=== PATIENT | female | born 1935 | race Caucasian/White ===

== ENCOUNTER → 2017-06-12 15:17 | Outpatient (CLI) | payer MEDICARE, SELFPAY ==
[2017-03-25 14:00] VITALS: BP 164/82; BMI 31.4
[2017-06-12 17:45] LABS: Cholesterol 147 mg/dL (200); High Density Lipoprotein 37 mg/dL; Triglycerides 265 mg/dL; Very Low Density Lipoprotein 53 mg/dL (5-40)
== END ==
PROVIDERS: Family Provider Family Medicine; PCP Family Medicine; Visit Provider Family Medicine
DX: I10 Essential (primary) hypertension (principal)
CPT/HCPCS: 36415; 80061

== ENCOUNTER → 2017-12-11 15:46 | Outpatient (CLI) | payer MEDICARE, SELFPAY ==
[2017-12-11 17:42] LABS: Anion Gap 6 (5-15); BUN 39 mg/dL (7-18); BUN/Creat Ratio 35.5 RATIO (10-20); Calcium,Total 9.7 mg/dL (8.5-10.1); Chloride 105 mmol/L (98-107); EST Glomerular Filtration Rate 50 mL/min (>60); Est Glom Filt Rate - Afr Amer 61 mL/min (>60); Glucose 89 mg/dL (74-106); Potassium 4.3 mmol/L (3.5-5.1); Sodium Level 138 mmol/L (136-145)
== END ==
PROVIDERS: Family Provider Family Medicine; PCP Family Medicine; Visit Provider Family Medicine
DX: I10 Essential (primary) hypertension (principal)
CPT/HCPCS: 36415; 80048

== ENCOUNTER → 2018-03-04 11:58 | Outpatient (CLI) | payer MEDICARE, SELFPAY | PROVIDERS: Family Provider Family Medicine; PCP Family Medicine; Visit Provider Family Medicine | DX: N39.0 Urinary tract infection, site not specified (principal) | CPT/HCPCS: 87086; 87088; 87186 ==

== ENCOUNTER → 2018-03-26 14:38 | Outpatient (CLI) | payer MEDICARE, SELFPAY ==
[2017-10-15 11:17] VITALS: BMI 31.3
--- NOTE | 2018-03-26 14:42 | BI_ITS ---
MAMMOGRAPHY - UNILATERAL SCREENING: RIGHT BREAST REASON FOR EXAM: Female, 82 years old. Routine annual screening examination (unilateral). PERTINENT HISTORY: Personal history of breast cancer. Prior left mastectomy. Sister with breast cancer. Grandmother with breast cancer. TECHNIQUE: Digital unilateral breast brice (3D mammographic acquisition) in the CC and MLO projections. 2-D mediolateral oblique (MLO) and craniocaudad (CC) views of both breasts were obtained. CAD: Full Field Digital Mammography with Computer Added Detection was performed. COMPARISON: Comparison is made with prior examination of March 16, 2017 and March 11, 2016. FINDINGS: Breast Composition: There are scattered areas of fibroglandular density. There are no dominant masses or suspicious calcifications. No other significant abnormalities are identified. There has been no significant change since the prior study. BI/Rt Brst Unilat Brice Add-On IMPRESSION: Stable unilateral screening mammogram. Yearly follow-up mammogram recommended. (A) ASSESSMENT CATEGORY: BIRADS Category 1: Negative. A letter regarding these results will be sent to the patient by the facility within 30 days. Approximately 10% of breast cancers are not detected by mammography. A normal mammogram should not delay biopsy of a clinically suspicious abnormality. [id number] Electronically Signed: Brandon Mayberry MD at 9:56 EST Tel [phone], Service support ,
== END ==
PROVIDERS: Family Provider Family Medicine; PCP Family Medicine; Referring Provider Internal Medicine Hematology & Oncology; Visit Provider Internal Medicine Hematology & Oncology
DX: Z12.31 Encounter for screening mammogram for malignant neoplasm of breast (principal); Z85.3 Personal history of malignant neoplasm of breast; Z80.3 Family history of malignant neoplasm of breast
CPT/HCPCS: 77061; 77067; G0279

== ENCOUNTER → 2018-06-22 15:32 | Outpatient (CLI) | payer MEDICARE, SELFPAY ==
[2018-04-01 13:30] VITALS: BMI 31.1
[2018-06-22 17:42] LABS: AST(SGOT) 14 U/L (15-37); Alanine Aminotransfer ALT/SGPT 27 U/L (13-56); BUN 35 mg/dL (7-18); BUN/Creat Ratio 29.9 RATIO (10-20); Calcium,Total 9.4 mg/dL (8.5-10.1); Chloride 104 mmol/L (98-107); Cholesterol 169 mg/dL (200); Creatinine, Serum 1.17 mg/dL (0.55-1.02); EST Glomerular Filtration Rate 47 mL/min (>60); Est Glom Filt Rate - Afr Amer 57 mL/min (>60); Glucose 92 mg/dL (74-106); Potassium 4.2 mmol/L (3.5-5.1); Sodium Level 138 mmol/L (136-145); Triglycerides 331 mg/dL
[2018-06-22 17:43] LABS: Anion Gap 8 (5-15); High Density Lipoprotein 37 mg/dL; Very Low Density Lipoprotein 66 mg/dL (5-40)
== END ==
PROVIDERS: Family Provider Family Medicine; PCP Family Medicine; Visit Provider Family Medicine
DX: I10 Essential (primary) hypertension (principal); E78.00 Pure hypercholesterolemia, unspecified
CPT/HCPCS: 36415; 80048; 80061; 84450; 84460

== ENCOUNTER 2018-11-27 14:57 | Emergency (ER) | payer MEDICARE, SELFPAY ==
[2018-11-15 11:05] VITALS: BMI 30.1
[2018-11-27 14:58] VITALS: BP 127/84; PULSE 107; RESP 17; TEMP 37.1; O2SAT 95; BMI 30.7
[2018-11-27 15:07] VITALS: PULSE 88
--- NOTE | 2018-11-27 15:16 | EKG12_ITS ---
Test Reason : SYNCOPE Blood Pressure : / mmHG Vent. Rate : 089 BPM Atrial Rate : 089 BPM P-R Int : 200 ms QRS Dur : 092 ms QT Int : 362 ms P-R-T Axes : 049 -37 -07 degrees QTc Int : 440 ms Sinus rhythm with Premature atrial complexes Left axis deviation Abnormal ECG Confirmed by RONIT GOMEZ, ELSA ([id number]), film and video editor ELIJAH VEGA ([id number]) on 11/29/2018 1:56:31 PM Referred By: FERNANDO Confirmed By:ESTHER COTTRELL MD
--- NOTE | 2018-11-27 15:16 | RAD_ITS ---
STUDY: X-RAY CHEST REASON FOR EXAM: Female, 83 years old. Seizure today TECHNIQUE: PA and lateral views of the chest. COMPARISON: None. FINDINGS: EKG leads project over the chest. Reticular densities in the lung bases are likely fibrotic. No airspace consolidation. There is no demonstrated pleural abnormality. Normal size heart. Normal mediastinum and sara. Normal visualized pulmonary arteries. There is atherosclerotic calcification of the aortic arch with tortuosity. There are diffuse degenerative changes of the visualized thoracic spine. Normal visualized ribs, clavicles, and shoulders. There is no demonstrated abnormality of the visualized soft tissue structures of the upper abdomen. RAD/Chest PA and Lateral IMPRESSION: 1. No airspace consolidation or pleural effusion. 2. Mild bibasilar fibrotic densities. Electronically Signed: Giovanni Cuevas MD at 15:35 EDT , Service support ,
[2018-11-27 15:31] LABS: Absolute Lymphocyte Count 2.08 X10^3/uL (0.83-4.51); Absolute Neutrophil Count 6.1 X10^3/uL (2.0-7.7); Basophil# 0.04 X10^3/uL; Basophil% 0.4 % (0-1); Eosinophil# 0.22 X10^3/uL; Eosinophils% 2.4 % (0-5); Hematocrit 38.4 % (37-47); Hemoglobin 12.6 g/dL (12.0-15.0); Lymphocyte # 2.08 X10^3/ul (4.0); Lymphocyte % 22.8 % (19-41); Mean Corp Hgb Conc 32.8 g/dL (32-36); Mean Corpuscular Hgb 28.9 pg (27.0-32.0); Mean Corpuscular Volume 88.1 fL (81-99); Mean Platelet Vol. 10.3 fl (6.2-12.0); Monocyte# 0.69 X10^3/uL; Monocyte% 7.6 % (0-10); NRBC Flagged by Analyzer 0 % (0-5); Neutrophil # 6.05 X10^3/uL (2.7-7.7); Neutrophil % 66.5 % (47-70); Platelet Count 235 K/mm3 (150-450); RBC Distribution Width CV 13.8 % (11.6-14.6); RBC Distribution Width SD 44.2 fl (35.1-43.9); Red Blood Count 4.36 M/mm3 (4.2-5.4); White Blood Count 9.1 K/mm3 (4.4-11.0)
[2018-11-27 15:39] LABS: Anion Gap 8 (5-15); BUN 33 mg/dL (7-18); BUN/Creat Ratio 25.8 RATIO (10-20); Calcium,Total 9.5 mg/dL (8.5-10.1); Chloride 104 mmol/L (98-107); Creatinine, Serum 1.28 mg/dL (0.55-1.02); EST Glomerular Filtration Rate 42 mL/min (>60); Est Glom Filt Rate - Afr Amer 51 mL/min (>60); Estimated Creatinine Clearance 27.06 ml/min; Glucose 140 mg/dL (74-106); Potassium 3.9 mmol/L (3.5-5.1); Sodium Level 137 mmol/L (136-145)
[2018-11-27 16:10] VITALS: BP 126/57; PULSE 78; RESP 16; O2SAT 93
[2018-11-27 16:22] LABS: Bacteria 0 SEEN /hpf (None Seen); Mucous, Urine 0 SEEN /hpf (<or=2+); Red Blood Cells-Urine 0 SEEN /hpf (0-5); Squamous Epithelial Cells - UA 0 SEEN /hpf (5-10)
[2018-11-27 16:31] LABS: Color, Urine Yellow (Yellow); Glucose, Dipstick Normal (Normal); Ketone-Dipstick Negative (Negative); Leukocyte Esterase-Dipstick 25 /ul (Negative); Nitrite-Dipstick Negative (Negative); Occult Blood-Urine Negative /ul (Negative); Protein-Dipstick Negative (Negative); Urine Bilirubin Dipstick Negative (Negative); Urine Clarity Clear (Clear); Urine Urobilinogen Normal (Normal); Urine pH 6.5 (5.0 - 8.0)
[2018-11-27 16:39] LABS: White Blood Cells 0-5 SEEN /hpf (0-5)
--- NOTE | 2018-11-27 16:43 | ED.VIS.GEN ---
History of Present Illness Informant: Patient, Family Onset: Today Context: Sudden Onset Timing: Intermittent, Lasts - 5 seconds Quality: lightheaded Location: head Current Severity: Mild Maximum Severity: Mild Worsened by: nothing Relieved by: nothing Associated Symptoms: lightheadedness Narrative: 83-year-old female presents to the emergency department after near syncopal episode. Patient had just returned home from her 's service. She was with her daughter who is also present at the bedside currently. Patient endorsed that she was feeling tired and sat down and had an episode where she may have passed out. Her daughter is not sure. She states that she kind of closed her eyes for maybe 5 seconds. There is no tonic-clonic activity. Patient was not postictal or incontinent. Prior similar symptoms: No Recent Illness/Hospitalization: No <Benja Bell - Last Filed: 11/27/18 16:43> <Fer Hernandez - Last Filed: 11/27/18 17:25> Chief Complaint: Syncope Past Medical History Prior records reviewed: Yes Past Medical History: - - Hypertension and hyperlipidemia Lives: With Family Smoking Status: Never smoker Alcohol: None Drugs: None <Benja Bell - Last Filed: 11/27/18 16:43> <Fer Hernandez - Last Filed: 11/27/18 17:25> - Allergies and Home Meds Allergies/Adverse Reactions: Allergies shrimp Adverse Reaction (Severe, Verified 11/27/18 15:05) Nausea/Vom/Diarrhea Sulfa (Sulfonamide Antibiotics) Adverse Reaction (Severe, Verified 11/27/18 15:05) Nausea/Vom/Diarrhea etodolac [From Lodine] Adverse Reaction (Mild, Verified 11/27/18 15:05) Other Primary Care Physician: Quita Kern MD [Primary Care Provider] - Review of Systems All systems negative except as indicated General: Denies: Chills, Fever, Malaise Cardiovascular: Denies: Chest pain Respiratory: Denies: Dyspnea Neurological: Reports: - - Lightheadedness <Benja Bell - Last Filed: 11/27/18 16:43> Physical Exam Vital Signs/Narrative: Vital Signs Temp Pulse Resp BP Pulse Ox 11/27/18 16:10 78 16 126/57 H 93 11/27/18 15:07 88 11/27/18 14:58 98.8 F 107 H 17 127/84 H 95 Inital Vital Signs reviewed: Yes General: Well nourished, Well developed, No Acute Distress Head: Normocephalic, Atraumatic Eyes: Perrl, EOMI ENT: Moist mucous membranes Neck: Supple, Nontender Cardiovascular: Regular rate, Regular rhythm Respiratory: No distress, CTA bilaterally, Chest nontender Abdomen: Soft, Nontender, Nondistended, Normal bowel sounds, No masses Back: Nontender Extremities: Nontender, No edema Skin: Normal color, No rash Neurological: Alert, Oriented x3, Cranial nerves II-XII grossly intact, Normal Strength, Normal Sensation, Normal DTR, Normal Gait <Benja Bell - Last Filed: 11/27/18 16:43> Vital Signs/Narrative: Vital Signs Temp Pulse Resp BP Pulse Ox 11/27/18 17:19 73 14 121/78 H 97 11/27/18 16:10 78 16 126/57 H 93 11/27/18 15:07 88 11/27/18 14:58 98.8 F 107 H 17 127/84 H 95 <Fer Hernandez - Last Filed: 11/27/18 17:25> Diagnostic/Tx/Re-eval Chest X-Ray - ED: 2 View, Read by ED Physician, Read by Radiologist, No Acute Disease - Rhythm Strip Rhythm Strip: Sinus Rhythm Rate: 98 Ectopy: None - EKG Initial EKG Interpretation: Sinus Rhythm, No Acute Injury Pattern Prior: Unchanged - Medical Decision Making EKG was normal sinus rhythm with a rate of 89 bpm. NM interval is 200 ms. QTc 440 ms. No acute ischemic changes. Patient's laboratory work-up is unremarkable including CBC BMP and troponin. Urinalysis negative. Chest x-ray was unremarkable. Patient remains hemodynamically stable. Discussed with patient and her daughter at this time that she will be discharged home and we advised him to follow-up with primary care. They were agreeable with this plan. Return precautions were discussed. <Benja Bell - Last Filed: 11/27/18 16:43> - Medical Decision Making Patient was seen with me. I performed a [id number] evaluation with the patient. Patient presents with syncopal episode. Daughter states that the patient sat down and her head went back and her back was arched. Daughter told me that the patient's upper extremities were shaking above her. Daughter states this lasted approximately 5 seconds and then resolved. Daughter states the patient became awake and alert immediately. Daughter denies any lower extremity shaking. Vital signs are stable. Patient is afebrile. Patient is in no acute distress. Cranial nerves II through XII are intact. There are no focal motor or sensory deficits noted. Heart was regular rate and rhythm. Lungs are clear and equal bilaterally. Abdomen is soft and nontender. EKG showed normal sinus rhythm. There are no acute changes. CBC, basic metabolic profile, troponin, and urinalysis were all within normal limits. Chest x-ray does not show any acute cardiopulmonary process. Patient and her family were instructed to follow-up with her primary care physician in 5 to 7 days for further evaluation. Patient and her family understood and were agreeable with the plan. All questions were answered. <Fer Hernandez - Last Filed: 11/27/18 17:25> ED Disposition <Benja Bell - Last Filed: 11/27/18 16:43> <Fer Hernandez - Last Filed: 11/27/18 17:25> - Plan for ED Patient: Disposition: Home or Assisted Living Diagnosis: Syncope and collapse Instructions: SYNCOPE, Unk Cause Referrals: Quita Kern MD [Primary Care Provider] -
[2018-11-27 17:19] VITALS: BP 121/78; PULSE 73; RESP 14; O2SAT 97
== END 2018-11-27 17:20 | disposition home or self-care (01) ==
PROVIDERS: Emergency Provider Physician Assistant Medical; Family Provider Family Medicine; PCP Family Medicine
DX: R55 Syncope and collapse (principal); Z88.2 Allergy status to sulfonamides; I10 Essential (primary) hypertension; E78.5 Hyperlipidemia, unspecified
CPT/HCPCS: 71046; 80048; 81001; 84484; 85025; 93005; 99285; A4216

== ENCOUNTER → 2019-02-28 | Outpatient (CLI) | payer MEDICARE, SELFPAY ==
[2019-02-28 14:13] LABS: Anion Gap 6 (5-15); BUN 27 mg/dL (7-18); BUN/Creat Ratio 26.7 RATIO (10-20); Calcium,Total 9.4 mg/dL (8.5-10.1); Chloride 102 mmol/L (98-107); Creatinine, Serum 1.01 mg/dL (0.55-1.02); EST Glomerular Filtration Rate 55 mL/min (>60); Est Glom Filt Rate - Afr Amer 67 mL/min (>60); Glucose 92 mg/dL (74-106); Potassium 3.6 mmol/L (3.5-5.1); Sodium Level 137 mmol/L (136-145)
== END | disposition home or self-care (01) ==
LOC: MFPLAB 11:39
PROVIDERS: Family Provider Family Medicine; PCP Family Medicine; Visit Provider Family Medicine
DX: I10 Essential (primary) hypertension (principal)
CPT/HCPCS: 36415; 80048

== ENCOUNTER → 2019-03-28 10:58 | Outpatient (CLI) | payer MEDICARE, SELFPAY ==
--- NOTE | 2019-03-28 11:00 | BI_ITS ---
MAMMOGRAPHY - UNILATERAL SCREENING: RIGHT BREAST REASON FOR EXAM: Female, 83 years old. Routine annual screening examination (unilateral). PERTINENT HISTORY: History of left mastectomy in 1998. Family history of breast cancer in sister and grandmother. TECHNIQUE: TECHNIQUE: Digital examination. Mediolateral oblique (MLO) and craniocaudad (CC) views of both breasts were obtained. CAD: CAD was performed on this study. COMPARISON: March 26, 2018, March 24, 2017 FINDINGS: Breast Composition: The breasts are almost entirely fatty. Stable benign calcifications. There are no dominant masses or suspicious calcifications. No other significant abnormalities are identified. BI/SCREEN MAMM (CAD) W/HUAN UNI R IMPRESSION: Stable bilateral screening mammogram. ASSESSMENT CATEGORY: BIRADS Category 2: Benign. A letter regarding these results will be sent to the patient by the facility within 30 days. FOLLOW UP RECOMMENDATION: Yearly follow up mammogram recommended. (A) Approximately 10% of breast cancers are not detected by mammography. A normal mammogram should not delay biopsy of a clinically suspicious abnormality. [id number] Electronically Signed: Maurizio Alexander MD at 10:39 EST , Service support ,
== END ==
PROVIDERS: Family Provider Family Medicine; PCP Family Medicine; Referring Provider Internal Medicine Hematology & Oncology; Visit Provider Internal Medicine Hematology & Oncology
DX: Z12.31 Encounter for screening mammogram for malignant neoplasm of breast (principal); Z80.3 Family history of malignant neoplasm of breast; Z90.12 Acquired absence of left breast and nipple
CPT/HCPCS: 77063; 77067

== ENCOUNTER 2019-04-10 09:00 | Emergency (ER) | payer MEDICARE, SELFPAY ==
[2019-04-04 11:07] VITALS: BMI 30.1
[2019-04-10 09:00] VITALS: BP 144/72; PULSE 75; RESP 18; TEMP 36.6; O2SAT 98; BMI 29.2
--- NOTE | 2019-04-10 09:18 | RAD_ITS ---
STUDY: X-RAY - PELVIS AND RIGHT HIP REASON FOR EXAM: Female, 83 years old. Pain, decreased range of motion TECHNIQUE: 3 views of the pelvis and hip. COMPARISON: None. FINDINGS: There is a non-specific bowel gas pattern. Normal visualized soft tissue structures. There is diffuse demineralization of the osseous structures. There is narrowing with cortical sclerosis and osteophyte formation of the sacroiliac joint consistent with degenerative osteoarthritic changes. Normal bilateral superior and inferior pubic rami. Normal pubic symphysis. Normal bilateral ischial tuberosities. Normal visualized femoral head. Normal acetabulum. There is moderate articular joint space narrowing of the hip. RAD/HIP, UNI W/ Pelvis 2-3 Views IMPRESSION: Degenerative arthrosis, no demonstrated fracture or suspicious osseous lesion. However, hip and pelvic fractures in patients of this age can be subtle, if there is strong clinical suspicion of a fracture, recommend further evaluation with CT Electronically Signed: Hernando Canchola MD at 10:00 EST , Service support ,
[2019-04-10 10:53] LABS: Mucous, Urine 0 SEEN /hpf (<or=2+)
[2019-04-10 10:55] LABS: Color, Urine Yellow (Yellow); Glucose, Dipstick Normal (Normal); Ketone-Dipstick Negative (Negative); Leukocyte Esterase-Dipstick 100 /ul (Negative); Nitrite-Dipstick Negative (Negative); Occult Blood-Urine 25 /ul (Negative); Protein-Dipstick Negative (Negative); Urine Bilirubin Dipstick Negative (Negative); Urine Clarity Sl. Cloudy (Clear); Urine Urobilinogen Normal (Normal); Urine pH 6.5 (5.0 - 8.0)
[2019-04-10 11:03] LABS: Bacteria 1+ /hpf (None Seen); Red Blood Cells-Urine 0-5 SEEN /hpf (0-5); Squamous Epithelial Cells - UA 0-5 SEEN /hpf (5-10); White Blood Cells 5-10 SEEN /hpf (0-5)
[2019-04-10] MEDS: Acetaminophen 500 MG Tablet 1000 MG PO (11:13)
[2019-04-10 11:15] VITALS: BP 153/70; PULSE 87; RESP 16; O2SAT 97
--- NOTE | 2019-04-10 11:34 | CT_ITS ---
STUDY: CT ABDOMEN AND PELVIS WITHOUT CONTRAST REASON FOR EXAM: Female, 83 years old. Right hip possibly popped out when patient stated this morning. Patient able to walk but not stand straight. RADIATION DOSAGE (If Supplied By Facility): CTDIvol = ( 10.54 ) mGy, DLP = ( 539.90 ) mGycm TECHNIQUE: Transaxial images were obtained from the dome of the diaphragm to the symphysis pubis without oral contrast, and without intravenous contrast. Sagittal and coronal images were reconstructed. Individualized dose optimization techniques were used for this CT. COMPARISON: None. FINDINGS: There is a defect in the posterior right diaphragm with shallow herniation of fat. Minor subsegmental atelectasis in the posterior lung bases. The visualized lung bases are unremarkable. The heart size is within normal limits. There are calcifications in the aortic valve annulus, coronary arteries, and distal descending thoracic aorta. Normal liver. The portal vein diameter is 10.7 mm. Normal gallbladder and extrahepatic biliary system. The diameter of the common bile duct is 4 mm. There are multiple benign calcified granulomata of the spleen. Normal pancreas. Normal bilateral adrenal glands. Normal right kidney. There is mild cortical atrophy of the left kidney compared to the right, consistent with chronic medical renal disease. There is a 3 mm subcapsular probable calcification of the lateral midpole. Rounded exophytic 4.8 mm density projecting from the tip of the lower pole difficult to further characterize. No hydronephrosis. Normal visualized stomach. Normal small intestine. There are multiple colonic diverticula consistent with diverticulosis. The appendix is visualized and appears normal. There is diffuse atherosclerotic calcification of the abdominal aorta and proximal iliac arteries, without a demonstrated aneurysm. Normal inferior vena cava. Normal retroperitoneum. Normal urinary bladder. There is absence of the uterus consistent with a prior hysterectomy. There is a subcentimeter midline defect of the supraumbilical anterior abdominal wall, allowing for an elongated, mildly lobulated 4.5 x 2.7 x 2.45 cm herniation of fat. There are diffuse degenerative changes of the visualized spine. Mild degenerative changes at the inferior aspect of the bilateral sacroiliac joints. The bilateral hips are in normal alignment. There is no demonstrated acute fracture. CT/Abdomen/Pelvis without Cont IMPRESSION: 1. The bilateral hips are normal anatomic alignment. No demonstrated fracture. 2. Atherosclerotic vascular calcifications noted. No demonstrated aneurysm. 3. Mild atrophy of the left kidney. 4.8 mm density difficult to further characterize projects from the tip of the left lower pole. No hydronephrosis. 4. Small supraumbilical midline defect of the anterior abdominal wall, allowing for a 4.5 cm fat-containing hernia. 5. Colonic diverticulosis without acute diverticulitis. No sign of bowel obstruction. The appendix is normal. 6. Prior hysterectomy. 7. Numerous calcified granulomata of the spleen. Electronically Signed: Hernando Davis MD at 12:44 EST , Service support ,
--- NOTE | 2019-04-10 11:41 | ED.DCSUM_ITS ---
History of Present Illness Chief Complaint: Lower Extremity Injury Informant: Patient, Family Onset: Today Context: Sudden Onset Timing: Continuous Narrative: Patient is an 83-year-old female presenting with right hip and lower back pain. Patient states she was walking this morning when she suddenly felt a popping sensation in her hip area. She states since then she is had a lot of pain in her hip and buttocks area. It is worse when she walks. Is better when she leans forward. She has not taken anything for the pain. She denies any other complaints at this time. She has a history of kidney stones. She denies any urinary symptoms. Past Medical History - Allergies and Home Meds Allergies/Adverse Reactions: Allergies shrimp Adverse Reaction (Severe, Verified 04/10/19 09:03) Nausea/Vom/Diarrhea Sulfa (Sulfonamide Antibiotics) Adverse Reaction (Severe, Verified 04/10/19 09:03) Nausea/Vom/Diarrhea etodolac [From Lodine] Adverse Reaction (Mild, Verified 04/10/19 09:03) Other Primary Care Physician: Quita Kern MD [Primary Care Provider] - Past Medical History: - - SVT, hyperlipidemia, history of breast cancer Surgical History: arthroscopy, knee, hysterectomy, mastectomy Lives: With Family Smoking Status: Never smoker Review of Systems General: Denies: Chills, Fever, Sweats Eyes: Denies: Visual changes - bilaterally, Diplopia ENT: Denies: Rhinorrhea, Sore throat Cardiovascular: Denies: Chest pain, Palpitations Respiratory: Denies: Dyspnea, Cough, Dyspnea on exertion Gastrointestinal: Denies: Abdominal pain, Nausea, Vomiting, Diarrhea, Melena, Hematochezia Genitourinary: Denies: Dysuria, Hematuria, Frequency Musculoskeletal: Reports: Back pain - Lower back, Extremity Pain - Right hip Skin: Denies: Rash, Wounds Neurological: Denies: Headache, Weakness, Numbness Physical Exam Vital Signs/Narrative: Vital Signs Temp Pulse Resp BP Pulse Ox 04/10/19 11:15 87 16 153/70 H 97 04/10/19 09:00 97.9 F 75 18 144/72 H 98 Inital Vital Signs reviewed: Yes General: Well nourished, Well developed, No Acute Distress Head: Normocephalic, Atraumatic Eyes: Perrl, EOMI ENT: Moist mucous membranes, No rhinorrhea Neck: Supple, Nontender Cardiovascular: Regular rate, Regular rhythm, No murmurs Respiratory: No distress, CTA bilaterally, Chest nontender Abdomen: Soft, Nontender, Nondistended, Normal bowel sounds. Negative for: Mass Back: Nontender, Normal Inspection. Negative for: CVA tenderness, Spinal te nderness Extremities: No edema, - - Mild tenderness palpation of right lateral hip, no pain with range of motion. Legs are equal leg and there is no deformity obvious Skin: Normal color, No rash Neurological: Alert, Oriented x3, Cranial nerves II-XII grossly intact, Normal Strength, Normal Sensation Psychological: Normal affect, Normal Mood Diagnostic/Tx/Re-eval Clinical Impression(s) from Imaging Studies Hip/Pelvis X-Ray 04/10/19 09:18 IMPRESSION: Degenerative arthrosis, no demonstrated fracture or suspicious osseous lesion. However, hip and pelvic fractures in patients of this age can be subtle, if there is strong clinical suspicion of a fracture, recommend further evaluation with CT Electronically Signed: Hernando Canchola MD at 10:00 EST , Service support , Abdomen/Pelvis CT 04/10/19 11:34 IMPRESSION: 1. The bilateral hips are normal anatomic alignment. No demonstrated fracture. 2. Atherosclerotic vascular calcifications noted. No demonstrated aneurysm. 3. Mild atrophy of the left kidney. 4.8 mm density difficult to further characterize projects from the tip of the left lower pole. No hydronephrosis. 4. Small supraumbilical midline defect of the anterior abdominal wall, allowing for a 4.5 cm fat-containing hernia. 5. Colonic diverticulosis without acute diverticulitis. No sign of bowel obstruction. The appendix is normal. 6. Prior hysterectomy. 7. Numerous calcified granulomata of the spleen. Electronically Signed: Hernando Davis MD at 12:44 EST , Service support , Laboratory Data 04/10/19 04/10/19 10:50 11:55 Sodium 138 Potassium 4.3 Chloride 106 Carbon Dioxide 28.0 Anion Gap 4 L BUN 22 H Creatinine 0.97 Estim Creat Clear Calc 35.71 Est GFR (MDRD) Af Amer 70 Est GFR (MDRD) Non-Af 58 L BUN/Creatinine Ratio 22.7 H Glucose 108 H Calcium 9.4 Total Bilirubin 0.40 AST 12 L ALT 22 Alkaline Phosphatase 78 Total Protein 7.0 Albumin 3.5 Globulin 3.5 Albumin/Globulin Ratio 1.0 Urine Color Yellow Urine Clarity Sl. Cloudy Urine pH 6.5 Ur Specific [place] 1.010 Urine Protein Negative Urine Glucose (UA) Normal Urine Ketones Negative Urine Occult Blood 25 H Urine Nitrite Negative Urine Bilirubin Negative Urine Urobilinogen Normal Ur Leukocyte Esterase 100 H Urine RBC 0-5 SEEN Urine WBC 5-10 SEEN Ur Squamous Epith Cells 0-5 SEEN Urine Bacteria 1+ Urine Mucus 0 SEEN - Medical Decision Making Patient is evaluated for right hip pain. She appears nontoxic and in no acute distress. She is ambulatory. X-ray does not show any signs of dislocation or acute fracture. Urinalysis is obtained because of patient's advanced age and vague groin/hip pain. This does show a small amount of blood. Because of this a CT of the flank and BMP is obtained. This is grossly normal. Patient does not have an obvious aneurysm or ureterolithiasis to explain her symptoms. She does have some incidental findings that patient and family are informed of and need for nonemergent outpatient follow-up. Patient is given Tylenol for pain. She is able in the emergency room. I suspect she has a muscle strain that is causing her pain. I feel that she is stable for outpatient follow-up. Patient is counseled on signs and symptoms requiring return to the emergency room. Patient verbalizes agreement and understand this plan. Patient discharged home in stable and improved condition. ED Disposition - Plan for ED Patient: Disposition: Home or Assisted Living Diagnosis: Strain of right hip Instructions: Hip Strain Referrals: Quita Kern MD [Primary Care Provider] - Additional Instructions: Continue take Tylenol as needed for your pain. There is no obvious signs of broken bones or kidney stones causing your pain today. Your CT did show an incidental findings of some changes to your left kidney and your urine did have a small amount of blood in it. Please follow-up with your primary care doctor for further evaluations of this. This does not need to be done emergently. Return to the emergency room if you develop any worsening symptoms.
[2019-04-10 12:31] LABS: AST(SGOT) 12 U/L (15-37); Alanine Aminotransfer ALT/SGPT 22 U/L (13-56); Albumin, Serum 3.5 g/dL (3.2-5.0); Alkaline Phosphatase 78 U/L (45-117); Anion Gap 4 (5-15); BUN 22 mg/dL (7-18); BUN/Creat Ratio 22.7 RATIO (10-20); Calcium,Total 9.4 mg/dL (8.5-10.1); Chloride 106 mmol/L (98-107); Creatinine, Serum 0.97 mg/dL (0.55-1.02); EST Glomerular Filtration Rate 58 mL/min (>60); Est Glom Filt Rate - Afr Amer 70 mL/min (>60); Estimated Creatinine Clearance 35.71 ml/min; Globulin 3.5 g/dL (2.2-4.2); Glucose 108 mg/dL (74-106); Potassium 4.3 mmol/L (3.5-5.1); Sodium Level 138 mmol/L (136-145)
[2019-04-10 13:56] VITALS: BP 144/74; PULSE 74; RESP 18; O2SAT 97
== END 2019-04-10 13:57 | disposition home or self-care (01) ==
PROVIDERS: Emergency Provider Emergency Medicine; Family Provider Family Medicine; PCP Family Medicine
DX: S76.011A Strain of muscle, fascia and tendon of right hip, initial encounter (principal); X58.XXXA Exposure to other specified factors, initial encounter; Y93.9 Activity, unspecified; Y92.89 Other specified places as the place of occurrence of the external cause; Y99.9 Unspecified external cause status; K57.30 Diverticulosis of large intestine without perforation or abscess without bleeding; M16.11 Unilateral primary osteoarthritis, right hip; Z90.710 Acquired absence of both cervix and uterus; E78.5 Hyperlipidemia, unspecified; Z85.3 Personal history of malignant neoplasm of breast; Z87.442 Personal history of urinary calculi; Z79.899 Other long term (current) drug therapy
CPT/HCPCS: 73502; 74176; 80048; 80053; 81001; 87086; 87088; 99283

== ENCOUNTER → 2019-08-15 10:40 | Outpatient (CLI) | payer MEDICARE, SELFPAY ==
[2019-08-15 12:35] LABS: AST(SGOT) 13 U/L (15-37); Alanine Aminotransfer ALT/SGPT 21 U/L (13-56); Anion Gap 4 (5-15); BUN 32 mg/dL (7-18); BUN/Creat Ratio 30.8 RATIO (10-20); Calcium,Total 9.9 mg/dL (8.5-10.1); Chloride 102 mmol/L (98-107); Cholesterol 164 mg/dL (200); Creatinine, Serum 1.04 mg/dL (0.55-1.02); EST Glomerular Filtration Rate 54 mL/min (>60); Est Glom Filt Rate - Afr Amer 65 mL/min (>60); Glucose 88 mg/dL (74-106); High Density Lipoprotein 44 mg/dL; Potassium 4.1 mmol/L (3.5-5.1); Sodium Level 136 mmol/L (136-145); Triglycerides 158 mg/dL; Very Low Density Lipoprotein 32 mg/dL (5-40)
== END ==
PROVIDERS: PCP Family Medicine; Referring Provider Family Medicine; Visit Provider Family Medicine
DX: I10 Essential (primary) hypertension (principal); E78.00 Pure hypercholesterolemia, unspecified
CPT/HCPCS: 36415; 80048; 80061; 84450; 84460

== ENCOUNTER → 2020-02-14 11:39 | Outpatient (CLI) | payer MEDICARE, SELFPAY ==
[2019-12-02 15:06] VITALS: BMI 30.5
[2020-02-14 16:01] LABS: Anion Gap 7 (5-15); BUN 27 mg/dL (7-18); BUN/Creat Ratio 27.9 RATIO (10-20); Chloride 104 mmol/L (98-107); Creatinine, Serum 0.97 mg/dL (0.55-1.02); EST Glomerular Filtration Rate 58 mL/min (>60); Est Glom Filt Rate - Afr Amer 70 mL/min (>60); Glucose 72 mg/dL (74-106); Potassium 4.2 mmol/L (3.5-5.1); Sodium Level 138 mmol/L (136-145)
== END ==
PROVIDERS: PCP Family Medicine; Referring Provider Family Medicine; Visit Provider Family Medicine
DX: I10 Essential (primary) hypertension (principal)
CPT/HCPCS: 36415; 80048

== ENCOUNTER → 2020-04-02 10:35 | Outpatient (CLI) | payer MEDICARE, SELFPAY ==
[2019-12-02 15:06] VITALS: BMI 30.5
--- NOTE | 2020-04-02 10:45 | BI_ITS ---
MAMMOGRAPHY - UNILATERAL SCREENING: RIGHT BREAST REASON FOR EXAM: Female, 84 years old. Routine annual screening examination (unilateral). PERTINENT HISTORY: Personal history of breast cancer. Prior left mastectomy. Sister with breast cancer. Grandmother with breast cancer. TECHNIQUE: Digital unilateral breast huan (3D mammographic acquisition) in the CC and MLO projections. 2-D mediolateral oblique (MLO) and craniocaudad (CC) views of both breasts were obtained. CAD: Full Field Digital Mammography with Computer Added Detection was performed. COMPARISON: Comparison is made with prior study dated 03/28/2019 and 03/26/2018. FINDINGS: Breast Composition: There are scattered areas of fibroglandular density. There are no dominant masses or suspicious calcifications. No other significant abnormalities are identified. There has been no significant change since the prior study. BI/SCREEN MAMM (CAD) W/HUAN UNI R IMPRESSION: Stable unilateral screening mammogram. Yearly follow-up mammogram recommended. (A) ASSESSMENT CATEGORY: BIRADS Category 1: Negative. A letter regarding these results will be sent to the patient by the facility within 30 days. Approximately 10% of breast cancers are not detected by mammography. A normal mammogram should not delay biopsy of a clinically suspicious abnormality. [id number] Electronically Signed: Brandon Mayberry, at 11:22 EST , Service support ,
== END ==
PROVIDERS: PCP Family Medicine; Referring Provider Internal Medicine Medical Oncology; Visit Provider Internal Medicine Medical Oncology
DX: Z12.31 Encounter for screening mammogram for malignant neoplasm of breast (principal); Z80.3 Family history of malignant neoplasm of breast; Z85.3 Personal history of malignant neoplasm of breast; Z90.13 Acquired absence of bilateral breasts and nipples
CPT/HCPCS: 77063; 77067

== ENCOUNTER → 2020-04-23 15:02 | Outpatient (CLI) | payer MEDICARE, SELFPAY ==
[2020-04-09 11:01] VITALS: BMI 31.1
== END ==
PROVIDERS: PCP Family Medicine; Referring Provider Family Medicine; Visit Provider Family Medicine
DX: N39.0 Urinary tract infection, site not specified (principal)
CPT/HCPCS: 87086; 87088; 87186

== ENCOUNTER → 2020-08-14 11:18 | Outpatient (CLI) | payer MEDICARE, SELFPAY ==
[2020-04-09 11:01] VITALS: BMI 31.1
[2020-08-14 15:52] LABS: AST(SGOT) 15 U/L (15-37); Alanine Aminotransfer ALT/SGPT 28 U/L (13-56); Anion Gap 6 (5-15); BUN 25 mg/dL (7-18); BUN/Creat Ratio 23.8 RATIO (10-20); Chloride 102 mmol/L (98-107); Cholesterol 173 mg/dL (200); Creatinine, Serum 1.05 mg/dL (0.55-1.02); EST Glomerular Filtration Rate 53 mL/min (>60); Est Glom Filt Rate - Afr Amer 64 mL/min (>60); Glucose 64 mg/dL (74-106); High Density Lipoprotein 44 mg/dL; Potassium 4.3 mmol/L (3.5-5.1); Sodium Level 137 mmol/L (136-145); Triglycerides 264 mg/dL; Very Low Density Lipoprotein 53 mg/dL (5-40)
== END ==
PROVIDERS: PCP Family Medicine; Referring Provider Family Medicine; Visit Provider Family Medicine
DX: I10 Essential (primary) hypertension (principal); E78.00 Pure hypercholesterolemia, unspecified
CPT/HCPCS: 36415; 80048; 80061; 84450; 84460

== ENCOUNTER → 2020-12-10 12:47 | Outpatient (CLI) | payer MEDICARE, SELFPAY ==
[2020-11-28 14:42] VITALS: BMI 31.5
--- NOTE | 2020-12-10 12:53 | ECHOD_ITS ---
Reason For Study: ARRHYTHMIA Procedure This was a 2D Doppler, Color Flow transthoracic echocardiogram. The study was technically difficult. Exam performed in department. Left Ventricle Normal LV size. Left ventricular systolic function is normal. The estimated ejection fraction is 55 %. Diastolic function is indeterminate. No regional wall motion abnormalities noted. Right Ventricle Normal RV size. Normal systolic function. Atria Normal left atrium. Normal right atrium. No doppler evidence for ASD. Mitral Valve There is no mitral annular calcification. Mild focal mitral valve calcification of the anterior leaflet. Mild-Moderate (1-2+) mitral valve insufficiency. Tricuspid Valve Normal tricuspid valve. Mild to moderate (1-2+) tricuspid valve insufficiency. Right ventricular systolic pressure estimated to be 28 mmHg. Aortic Valve Trisinus/trileaflet aortic valve. Mild focal aortic valve calcification. Trivial aortic valve insufficiency. Pulmonic Valve The pulmonic valve is not well visualized. Great Vessels Normal sized aortic root. Calcified aortic root. Pericardium/Pleural No pericardial effusion. MMode/2D Measurements & Calculations LVIDd: 4.3 cm IVSd: 0.78 cm Ao root diam: 3.3 cm LVIDs: 3.4 cm LVPWd: 0.78 cm RVDd: 3.7 cm FS: 20.2 % LAV(MOD-bp): 54.6 ml LA A4 area: 19.1 cm2 LA dimension(2D): 3.0 cm LAV(MOD-bp) Indexed: 29.7 ml/m2 LAV(MOD-sp2): 55.3 ml LAV(MOD-sp4): 56.4 ml RA A4 area: 13.5 cm2 Time Measurements MV dec time: 0.21 sec Doppler Measurements & Calculations MV E max thanh: 65.9 cm/sec Lat Peak E' Thanh: 2.5 cm/sec Med Peak E' Thanh: 3.7 cm/sec MV A max thanh: 118.2 cm/sec E/E' lat: 26.2 E/E' med: 17.9 MV E/A: 0.56 Ao V2 max: 113.6 cm/sec AI max thanh: 475.2 cm/sec LV V1 max: 81.3 cm/sec Ao max P.2 mmHg AI max P.4 mmHg LV V1 max P.7 mmHg AI dec slope: 324.8 cm/sec2 AI P1/2t: 428.5 msec TR max thanh: 252.1 cm/sec TR max P.4 mmHg ECHO/Echo Complete Interpretation Summary The study was technically difficult. Left ventricular systolic function is normal. The estimated ejection fraction is 55 %. Mild focal mitral valve calcification of the anterior leaflet. Mild-Moderate (1-2+) mitral valve insufficiency. Mild to moderate (1-2+) tricuspid valve insufficiency. Mild focal aortic valve calcification. Trivial aortic valve insufficiency. Calcified aortic root. Right ventricular systolic pressure estimated to be 28 mmHg. Diastolic function is indeterminate. Ordering Physician: Rudy Feliciano Referring Physician: DAISY GAO Performed By: Caren Patel, RDCS, RVT
== END ==
PROVIDERS: PCP Family Medicine; Referring Provider Internal Medicine Cardiovascular Disease; Visit Provider Internal Medicine Cardiovascular Disease
DX: I47.1 Supraventricular tachycardia (principal); R55 Syncope and collapse
CPT/HCPCS: 93225; 93226; 93306

== ENCOUNTER → 2021-02-15 11:22 | Outpatient (CLI) | payer MEDICARE, SELFPAY ==
[2021-02-15 15:16] LABS: Anion Gap 7 (5-15); BUN 35 mg/dL (7-18); BUN/Creat Ratio 32.7 RATIO (10-20); Calcium,Total 9.9 mg/dL (8.5-10.1); Chloride 104 mmol/L (98-107); Creatinine, Serum 1.07 mg/dL (0.55-1.02); EST Glomerular Filtration Rate 52 mL/min (>60); Est Glom Filt Rate - Afr Amer 63 mL/min (>60); Glucose 76 mg/dL (74-106); Potassium 4.5 mmol/L (3.5-5.1); Sodium Level 138 mmol/L (136-145)
== END ==
PROVIDERS: PCP Family Medicine; Referring Provider Family Medicine; Visit Provider Family Medicine
DX: I10 Essential (primary) hypertension (principal)
CPT/HCPCS: 36415; 80048

== ENCOUNTER → 2021-04-03 10:17 | Outpatient (CLI) | payer MEDICARE, SELFPAY ==
--- NOTE | 2021-04-03 10:18 | BI_ITS ---
MAMMOGRAPHY - UNILATERAL SCREENING: RIGHT BREAST REASON FOR EXAM: Female, 85 years old. Routine annual screening examination (unilateral). PERTINENT HISTORY: Personal history of breast cancer. Prior left mastectomy. Sister with breast cancer. Grandmother with breast cancer. TECHNIQUE: Digital unilateral breast huan (3D mammographic acquisition) in the CC and MLO projections. 2-D mediolateral oblique (MLO) and craniocaudad (CC) views of both breasts were obtained. CAD: Full Field Digital Mammography with Computer Added Detection was performed. COMPARISON: Comparison is made with prior study dated 04/02/2020 and 03/28/2019. FINDINGS: Breast Composition: There are scattered areas of fibroglandular density. There are no dominant masses or suspicious calcifications. No other significant abnormalities are identified. There has been no significant change since the prior study. BI/SCREEN MAMM (CAD) W/HUAN UNI R IMPRESSION: Stable unilateral screening mammogram. Yearly follow-up mammogram recommended. (A) ASSESSMENT CATEGORY: BIRADS Category 1: Negative. A letter regarding these results will be sent to the patient by the facility within 30 days. Approximately 10% of breast cancers are not detected by mammography. A normal mammogram should not delay biopsy of a clinically suspicious abnormality. [id number] Electronically Signed: Brandon Mayberry MD at 10:49 EST , Service support ,
== END ==
PROVIDERS: PCP Family Medicine; Referring Provider Internal Medicine Hematology & Oncology; Visit Provider Internal Medicine Hematology & Oncology
DX: Z12.31 Encounter for screening mammogram for malignant neoplasm of breast (principal); Z85.3 Personal history of malignant neoplasm of breast; Z80.3 Family history of malignant neoplasm of breast; Z90.13 Acquired absence of bilateral breasts and nipples
CPT/HCPCS: 77063; 77067

== ENCOUNTER → 2021-08-21 | Outpatient (CLI) | payer MEDICARE, SELFPAY ==
[2021-08-21 15:33] LABS: AST(SGOT) 12 U/L (15-37); Alanine Aminotransfer ALT/SGPT 25 U/L (13-56); Anion Gap 6 (5-15); BUN 25 mg/dL (7-18); Calcium,Total 9.4 mg/dL (8.5-10.1); Chloride 103 mmol/L (98-107); Cholesterol 162 mg/dL (200); Creatinine, Serum 1.04 mg/dL (0.55-1.02); EST Glomerular Filtration Rate 53 mL/min (>60); Est Glom Filt Rate - Afr Amer 65 mL/min (>60); Glucose 88 mg/dL (74-106); High Density Lipoprotein 40 mg/dL; Sodium Level 139 mmol/L (136-145); Triglycerides 240 mg/dL; Very Low Density Lipoprotein 48 mg/dL (5-40)
== END | disposition home or self-care (01) ==
LOC: MFPLAB 11:44
PROVIDERS: PCP Family Medicine; Referring Provider Family Medicine; Visit Provider Family Medicine
DX: E78.00 Pure hypercholesterolemia, unspecified (principal); I10 Essential (primary) hypertension
CPT/HCPCS: 36415; 80048; 80061; 84450; 84460

== ENCOUNTER → 2021-11-06 | Outpatient (CLI) | payer MEDICARE, SELFPAY | END | disposition home or self-care (01) | PROVIDERS: PCP Family Medicine; Visit Provider Nurse Practitioner Family | DX: N39.0 Urinary tract infection, site not specified (principal) | CPT/HCPCS: 87077; 87086; 87088; 87186 ==

== ENCOUNTER → 2021-12-09 | Outpatient (CLI) | payer MEDICARE, SELFPAY | END | disposition home or self-care (01) | LOC: PSN 09:04 | PROVIDERS: PCP Family Medicine; Referring Provider Internal Medicine Cardiovascular Disease; Visit Provider Internal Medicine Cardiovascular Disease | DX: I47.1 Supraventricular tachycardia (principal) | CPT/HCPCS: 93225; 93226 ==

== ENCOUNTER → 2021-12-16 | Outpatient (CLI) | payer MEDICARE, SELFPAY | END | disposition home or self-care (01) | LOC: LABSPEC 14:15 | PROVIDERS: PCP Family Medicine; Visit Provider Obstetrics & Gynecology | DX: N39.0 Urinary tract infection, site not specified (principal) | CPT/HCPCS: 87077; 87086; 87088; 87186 ==

== ENCOUNTER → 2021-12-19 | Outpatient (CLI) | payer MEDICARE, SELFPAY ==
[2021-12-19 10:44] LABS: Mucous, Urine 0 SEEN /hpf (<or=2+)
[2021-12-19 12:36] LABS: Color, Urine Yellow (Yellow); Glucose, Dipstick Normal (Normal); Ketone-Dipstick Negative (Negative); Leukocyte Esterase-Dipstick 500 /ul (Negative); Nitrite-Dipstick Negative (Negative); Occult Blood-Urine 25 /ul (Negative); Protein-Dipstick 15 mg/dl (Negative); Urine Bilirubin Dipstick Negative (Negative); Urine Clarity Cloudy (Clear); Urine Urobilinogen Normal (Normal); Urine pH 6.5 (5.0 - 8.0)
[2021-12-19 12:57] LABS: White Blood Cells 50-100 SEEN /hpf (0-5)
[2021-12-19 12:59] LABS: Bacteria 1+ /hpf (None Seen); Red Blood Cells-Urine 0-5 SEEN /hpf (0-5); Squamous Epithelial Cells - UA 0-5 SEEN /hpf (5-10)
== END | disposition home or self-care (01) ==
LOC: MFPLAB 10:43 → LABSPEC 10:45
PROVIDERS: PCP Family Medicine; Referring Provider Family Medicine; Visit Provider Nurse Practitioner Family
DX: R39.15 Urgency of urination (principal)
CPT/HCPCS: 81001; 87077; 87086; 87088; 87186

== ENCOUNTER → 2022-04-04 | Outpatient (CLI) | payer MEDICARE, SELFPAY ==
--- NOTE | 2022-04-04 12:58 | BI_ITS ---
MAMMOGRAPHY - UNILATERAL SCREENING: RIGHT BREAST REASON FOR EXAM: Female, 86 years old. Routine annual screening examination (unilateral). PERTINENT HISTORY: Personal history of breast cancer. Prior left mastectomy. Sister with breast cancer. TECHNIQUE: Digital unilateral breast huan (3D mammographic acquisition) in the CC and MLO projections. 2-D mediolateral oblique (MLO) and craniocaudad (CC) views of both breasts were obtained. CAD: Full Field Digital Mammography with Computer Added Detection was performed. COMPARISON: Comparison is made with prior study dated 04/03/2021 and 04/02/2020. FINDINGS: Breast Composition: There are scattered areas of fibroglandular density. There are no dominant masses or suspicious calcifications. No other significant abnormalities are identified. There has been no significant change since the prior study. BI/SCREEN MAMM (CAD) W/HUAN UNI R IMPRESSION: Stable unilateral screening mammogram. Yearly follow-up mammogram recommended. (A) ASSESSMENT CATEGORY: BIRADS Category 1: Negative. A letter regarding these results will be sent to the patient by the facility within 30 days. Approximately 10% of breast cancers are not detected by mammography. A normal mammogram should not delay biopsy of a clinically suspicious abnormality. [id number] Electronically Signed: Brandon Mayberry MD at 13:48 EST ,
== END | disposition home or self-care (01) ==
LOC: OPBI 12:57
PROVIDERS: PCP Family Medicine; Referring Provider Internal Medicine Hematology & Oncology; Visit Provider Internal Medicine Hematology & Oncology
DX: Z12.31 Encounter for screening mammogram for malignant neoplasm of breast (principal); Z90.12 Acquired absence of left breast and nipple; Z80.3 Family history of malignant neoplasm of breast; Z85.3 Personal history of malignant neoplasm of breast
CPT/HCPCS: 77063; 77067

== ENCOUNTER → 2022-09-02 | Outpatient (CLI) | payer MEDICARE, SELFPAY ==
[2022-09-02 12:38] LABS: Microalbumin,Random Urine 40.7 mg/L (NO RANGE EST.); Microalbumin:Creatinine Ratio 67.8 mg/g CRE (<30 mg/g CRE)
[2022-09-02 13:46] LABS: AST(SGOT) 14 U/L (15-37); Alanine Aminotransfer ALT/SGPT 24 U/L (13-56); Anion Gap 6 (5-15); BUN 23 mg/dL (7-18); BUN/Creat Ratio 24.4 RATIO (10-20); Calcium,Total 9.9 mg/dL (8.5-10.1); Chloride 107 mmol/L (98-107); Cholesterol 154 mg/dL (200); Creatinine, Serum 0.94 mg/dL (0.55-1.02); EST Glomerular Filtration Rate 60 mL/min (>60); Est Glom Filt Rate - Afr Amer 72 mL/min (>60); Glucose 64 mg/dL (74-106); High Density Lipoprotein 45 mg/dL; Sodium Level 141 mmol/L (136-145); Thyroid Stim Hormone (TSH) 1.16 uIU/mL (0.358-3.74); Triglycerides 210 mg/dL; Very Low Density Lipoprotein 42 mg/dL (5-40)
== END | disposition home or self-care (01) ==
LOC: MFPLAB 11:15
PROVIDERS: PCP Family Medicine; Visit Provider Family Medicine
DX: I10 Essential (primary) hypertension (principal); I47.1 Supraventricular tachycardia; E78.00 Pure hypercholesterolemia, unspecified
CPT/HCPCS: 36415; 80048; 80061; 82043; 82570; 84443; 84450; 84460

== ENCOUNTER → 2022-12-17 | Outpatient (CLI) | payer MEDICARE, SELFPAY | END | disposition home or self-care (01) | LOC: LABSPEC 11:28 | PROVIDERS: PCP Family Medicine; Visit Provider Family Medicine | DX: N39.0 Urinary tract infection, site not specified (principal) | CPT/HCPCS: 87077; 87086; 87088; 87186 ==

== ENCOUNTER → 2023-04-09 | Outpatient (CLI) | payer MEDICARE, SELFPAY ==
--- NOTE | 2023-04-09 10:54 | BI_ITS ---
MAMMOGRAPHY - UNILATERAL SCREENING: RIGHT BREAST REASON FOR EXAM: Female, 87 years old. Routine annual screening examination (unilateral). PERTINENT HISTORY: Personal history of breast cancer. Prior left mastectomy. Sister with breast cancer. Grandmother with breast cancer. TECHNIQUE: Digital unilateral breast huan (3D mammographic acquisition) in the CC and MLO projections. 2-D mediolateral oblique (MLO) and craniocaudad (CC) views of both breasts were obtained. CAD: Full Field Digital Mammography with Computer Added Detection was performed. COMPARISON: Comparison is made with prior study dated April 04, 2022 and April 03, 2021. FINDINGS: Breast Composition: There are scattered areas of fibroglandular density. There are no dominant masses or suspicious calcifications. No other significant abnormalities are identified. There has been no significant change since the prior study. BI/SCREEN MAMM (CAD) W/HUAN UNI R IMPRESSION: Stable unilateral screening mammogram. Yearly follow-up mammogram recommended. (A) ASSESSMENT CATEGORY: BIRADS Category 1: Negative. A letter regarding these results will be sent to the patient by the facility within 30 days. Approximately 10% of breast cancers are not detected by mammography. A normal mammogram should not delay biopsy of a clinically suspicious abnormality. [id number] Electronically Signed: Brandon Mayberry MD at 12:10 EST ,
== END | disposition home or self-care (01) ==
LOC: OPBI 10:54
PROVIDERS: PCP Family Medicine; Referring Provider Internal Medicine Hematology & Oncology; Visit Provider Internal Medicine Hematology & Oncology
DX: Z12.31 Encounter for screening mammogram for malignant neoplasm of breast (principal); Z85.3 Personal history of malignant neoplasm of breast; Z80.3 Family history of malignant neoplasm of breast
CPT/HCPCS: 77063; 77067

== ENCOUNTER 2023-08-23 05:38 | Emergency (ER) | payer MEDICARE, SELFPAY ==
[2023-08-23 05:39] VITALS: BP 154/120; PULSE 124; RESP 17; TEMP 36; O2SAT 98; BMI 29.5
--- NOTE | 2023-08-23 05:53 | CT_ITS ---
STUDY: CT BRAIN WITHOUT CONTRAST REASON FOR EXAM: Female, 87 years old. Headache. RADIATION DOSAGE (If Supplied By Facility): CTDIvol = ( 44.99 ) mGy, DLP = ( 796.11 ) mGycm TECHNIQUE: Transaxial CT imaging of the brain was performed without administration of intravenous contrast material. Individualized dose optimization techniques were used for this CT. COMPARISON: No relevant prior comparison study available FINDINGS: PARENCHYMA: There is no acute bleed or infarct. There are chronic ischemic and atrophic changes. VENTRICLES: There is no hydrocephalus. MASTOID AIR CELLS AND PARANASAL SINUSES: The visualized paranasal sinuses are clear. The mastoid air cells are clear. BONES: There is no skull fracture. SOFT TISSUES: There is a 2.7 x 2.6 cm rounded soft tissue mass in the right softwood faller space which is not fully visualized on this exam. Further evaluation with a contrast-enhanced CT of the neck is recommended. CT/Brain/Head without Contrast IMPRESSION: No acute intracranial abnormality. Chronic ischemic and atrophic changes. 2.7 x 2.6 cm rounded soft tissue mass in the right softwood faller space which is not fully visualized on this exam. Further evaluation with a contrast-enhanced CT of the neck is recommended. Electronically Signed: Krishan Elizalde MD at 7:25 EDT ,
--- NOTE | 2023-08-23 05:53 | EKG12_ITS ---
Test Reason : DYSRHYTHMIA Blood Pressure : / mmHG Vent. Rate : 120 BPM Atrial Rate : 000 BPM P-R Int : 000 ms QRS Dur : 094 ms QT Int : 310 ms P-R-T Axes : 000 -30 014 degrees QTc Int : 438 ms Atrial fibrillation with rapid ventricular response Left axis deviation Nonspecific ST abnormality Abnormal ECG Confirmed by Ibrahima Honeycutt ([id number]), editor newspaper JOON VAIL ([id number]) on 08/24/2023 9:58:14 AM Referred By: Confirmed By:Ibrahima Honeycutt
--- NOTE | 2023-08-23 05:56 | EDS_ITS ---
HPI <Dr. Perry Flores DO - Last Filed: 08/29/23 15:35> History of Present Illness Chief Complaint: Headache Informant: patient Narrative Narrative: By EMS from home nontraumatic pain right posterior head wrapping around to her neck lower jaw region. Denies fevers or recent illness. Mild symptoms starting for better worsening prior to arrival she took a washcloths to it now currently subsided on 2-3. Chickenpox when she was younger she got the shingles vaccine no shingles in the past. No visual changes. EMS EKG reviewed artifactual however questionable A-fib. She has no history of this, states SVT history as noted in her records. Remote breast cancer history years ago. No current treatment. [facility] <Dr. Perry Flores DO - Last Filed: 08/29/23 15:35> [facility] Medical History History of left breast cancer History of recent fall Hyperlipidemia Macular degeneration Malignant neoplasm of left female breast Non-rheumatic mitral regurgitation Non-rheumatic tricuspid valve insufficiency Paroxysmal SVT (supraventricular tachycardia) Syncope and collapse Home Medications atorvastatin 10 mg tablet 10 mg PO QHS 12/02/13 [History Last Taken Unknown] rmxnhovm-ukf-fhtfu acid 0.4 mg-lycopene 300 mcg-lutein 250 mcg tablet 1 ea PO DAILY 12/02/13 [History Last Taken Unknown] oxybutynin chloride 10 mg tablet,extended release 24 hr 10 mg PO DAILY 12/02/13 [History Last Taken Unknown] cholecalciferol (vitamin D3) 25 mcg (1,000 unit) tablet 1,000 unit PO DAILY 01/02/15 [History Last Taken Unknown] lisinopril 20 mg-hydrochlorothiazide 12.5 mg tablet 1 tab PO BID 12/02/19 [History Last Taken Unknown] potassium chloride 10 mEq tablet,extended release 20 meq PO BID 12/02/19 [History Last Taken Unknown] vit C 250 mg-vit E 90 mg-zinc 40 mg-copper 1 ln-neirvh-kaevyc capsule 1 cap PO BID 12/02/19 [History Last Taken Unknown] colloidal oatmeal 2 % topical cream (Gold Jimenes Ultimate Eczema Relief) 1 applic topical DAILY PRN dry skin 11/28/20 [History Last Taken Unknown] hydrocortisone 1 % topical cream (Cortizone-10) 1 applic topical BID PRN skin irritation 11/28/20 [History Last Taken Unknown] povidone 1.25 % eye drops (Soothe Hydration) 1 drp ophthalmic (eye) BID PRN 11/28/20 [History Last Taken Unknown] metoprolol tartrate 50 mg tablet 50 mg PO BID #180 tabs 10/08/22 [Rx Last Taken Unknown] apixaban 5 mg tablet (Eliquis) 5 mg PO BID #60 tabs 08/23/23 [Rx Last Taken Unknown] diltiazem HCl 120 mg capsule,extended release 24 hr (Cardizem CD) 120 mg PO DAILY #30 caps 08/23/23 [Rx Last Taken Unknown] Allergy/AdvReac Type Severity Reaction Status Date / Time shrimp AdvReac Severe Nausea/Vom/ Verified 08/23/23 05:39 Diarrhea Sulfa (Sulfonamide AdvReac Severe Nausea/Vom/ Verified 08/23/23 05:39 Antibiotics) Diarrhea etodolac [From Lodine] AdvReac Mild Other Verified 08/23/23 05:39 Family History Mother Myocardial infarction, Onset Age: 68 Sister CAD (coronary artery disease) Surgical History History of left knee replacement History of mastectomy History of right knee joint replacement History of total hysterectomy Social History Smoking Status: Never smoker second hand exposure: No alcohol intake: never substance use type: does not use caffeine: No lakia/roman catholic: None seatbelt use: always ROS <Dr. Perry Flores DO - Last Filed: 08/29/23 15:35> ROS ED Constitutional Constitutional ED: Denies chills, fever(s) or sweats Eyes Eyes: Denies change in vision ENT ENT ED: Denies dysphagia or sore throat Cardiovascular Cardiovascular: Denies chest pain, leg edema, palpitations or racing heartbeat Respiratory/Chest Respiratory/Chest: Denies cough, dyspnea or dyspnea on exertion Gastrointestinal Gastrointestinal: Denies abdominal pain, diarrhea, nausea or vomiting Genitourinary Genitourinary ED: Denies dysuria, hematuria or urinary frequency Musculoskeletal Musculoskeletal: Denies back pain, extremity pain or neck pain Integumentary Denies rash or wounds Neurologic Neurologic: Reports headache(s); Denies paresthesias or weakness EXAM <Dr. Perry Flores DO - Last Filed: 08/29/23 15:35> Physical Exam Const Vital Signs: 08/23/23 05:39 08/23/23 07:39 08/23/23 09:00 Temperature 96.8 F L Temperature Source Temporal Pulse Rate 124 H 105 H 63 Respiratory Rate 17 16 16 Blood Pressure 154/120 H 158/93 H 159/101 H Blood Pressure Mean 131 114 120 Pulse Ox 98 98 98 Oxygen Delivery Method Room Air Room Air Room Air 08/23/23 10:45 Temperature Temperature Source Pulse Rate 108 H Respiratory Rate 18 Blood Pressure 150/95 H Blood Pressure Mean 113 Pulse Ox 98 Oxygen Delivery Method Room Air Positive well nourished and well developed General Appearance ED: well developed and NAD HEENT Reports moist mucous membranes HEENT Narrative: Tenderness along the skin at the right occiput right lateral neck. No current lesions or rash. normocephalic and atraumatic Eyes PERRL, EOMs intact bilaterally and conjunctivae normal General Eye ED: Yes normal appearance of both eyes Neck no lymphadenopathy and supple General: Negative for tenderness Chest Wall Chest: Negative for tenderness Resp normal respiratory effort and normal air movement Effort and Inspection: symmetric chest movement; Negative for respiratory distress Cardio no murmurs Rate: tachycardic Rhythm: abnormal rhythm Peripheral Pulses: pulses 2+ throughout GI normal to inspection, nondistended, normoactive bowel sounds and non-tender Palpation: Negative for guarding or rebound tenderness present Back/Spine no CVA tenderness and no thoracic nor lumbar tenderness Extremity normal to inspection General Extremety ED: Negative for edema or tenderness General Extremity: Negative for edema Neuro oriented x3, CN's II-XII intact bilaterally and no sensory deficits noted Sensorium / Orientation: awake and alert Skin no rashes or lesions noted and no wounds <Dr. Thanh Seanz MD - Last Filed: 08/23/23 11:22> Physical Exam Const Vital Signs: 08/23/23 05:39 08/23/23 07:39 08/23/23 09:00 Temperature 96.8 F L Temperature Source Temporal Pulse Rate 124 H 105 H 63 Respiratory Rate 17 16 16 Blood Pressure 154/120 H 158/93 H 159/101 H Blood Pressure Mean 131 114 120 Pulse Ox 98 98 98 Oxygen Delivery Method Room Air Room Air Room Air 08/23/23 10:45 Temperature Temperature Source Pulse Rate 108 H Respiratory Rate 18 Blood Pressure 150/95 H Blood Pressure Mean 113 Pulse Ox 98 Oxygen Delivery Method Room Air [facility] <Dr. Perry Flores, DO - Last Filed: 08/29/23 15:35> [facility] MDM Narrative Medical decision making narrative: Interventions / MDM: Differential diagnosis: A-fib with RVR, shingles Diagnosis considered but do not suspect: Intracranial hemorrhage however CT negative. My EKG interpretation: A-fib RVR 122, no ST or T wave changes. Imaging independently reviewed and interpreted by myself: 1 view chest x-ray: No acute process. CT brain: No intracranial process. There is fullness soft tissue structure right masseter region per radiology. External documents reviewed: N/A Test considered but not ordered:N/A ED course: Patient nontraumatic pain occiput along the skin line there is no current rash. Head CT ordered. Heart rate sound irregular and tachycardic. EKG confirms A-fib with RVR. Labs were drawn, Lopressor ordered. Denies any stroke or heart failure history. No diabetes history. History of hypertension per patient. 0705: Heart rate low 100s. Blood pressure stable. Additional Lopressor to be given. Labs are pending. Right-sided Slowly subsiding. 0750: CT brain report per radiology notes a soft tissue mass right mastectomy region partially seen on the CT brain. Evaluation patient she denies any discomfort swallowing. She does not smoke or chew tobacco. On exam there is fullness up in the right soft palate region. Is nontender. CT soft tissue neck ordered for further evaluation. Patient signed out to morning physician Dr. Saenz. Re-evaluation: stable Disposition discussed with patient/family/significant other: Patient Case discussed with consulting clinician: N/A This note was generated with [employer] dictation software. It may contain incorrect words, spelling, and punctuation that were not noted in checking the note before signing. Lab Data Labs: Laboratory Results - last 24 hr 08/23/23 06:07 WBC 9.1 RBC 4.49 Hgb 12.4 Hct 39.1 MCV 87.1 MCH 27.6 MCHC 31.7 L RDW Std Deviation 47.8 H RDW Coeff of Scott 15.1 H Plt Count 235 MPV 11.2 Immature Gran % (Auto) 0.300 Neut % (Auto) 69.1 Lymph % (Auto) 20.5 Screven % (Auto) 6.2 Eos % (Auto) 3.1 Baso % (Auto) 0.8 Absolute Neuts (auto) 6.3 Absolute Lymphs (auto) 1.87 Nucleated RBC % 0 Sodium 137 Potassium 3.7 Chloride 104 Carbon Dioxide 26.0 Anion Gap 7 BUN 30 H Creatinine 1.08 H Estim Creat Clear Calc 35.08 Est GFR (MDRD) Af Amer 61 Est GFR (MDRD) Non-Af 51 L BUN/Creatinine Ratio 27.8 H Glucose 131 H Calcium 9.8 TSH 1.85 Radiography Diagnostic Testing: Clinical Impression(s) from Imaging Studies Brain CT 08/23/23 05:53 IMPRESSION: No acute intracranial abnormality. Chronic ischemic and atrophic changes. 2.7 x 2.6 cm rounded soft tissue mass in the right shift foreman space which is not fully visualized on this exam. Further evaluation with a contrast-enhanced CT of the neck is recommended. Electronically Signed: Krishan Elizalde MD at 7:25 EDT , Chest X-Ray 08/23/23 06:23 IMPRESSION: Cardiomegaly. Left basilar atelectasis. No pulmonary infiltrates or pleural effusions. Electronically Signed: Krishan Elizalde MD at 7:27 EDT , Soft Tissue Neck CT 08/23/23 07:50 IMPRESSION: 1. 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 This is not a right shift foreman space mass as was reported on CT head scan. 2. No CT evidence of lymphadenopathy in the suprahyoid neck and infrahyoid neck. Electronically Signed: Shiva Coy MD at 10:11 EDT , <Dr. Thanh Saenz MD - Last Filed: 08/23/23 11:22> [facility] Lab Data Labs: Laboratory Results - last 24 hr 08/23/23 06:07 WBC 9.1 RBC 4.49 Hgb 12.4 Hct 39.1 MCV 87.1 MCH 27.6 MCHC 31.7 L RDW Std Deviation 47.8 H RDW Coeff of Scott 15.1 H Plt Count 235 MPV 11.2 Immature Gran % (Auto) 0.300 Neut % (Auto) 69.1 Lymph % (Auto) 20.5 Screven % (Auto) 6.2 Eos % (Auto) 3.1 Baso % (Auto) 0.8 Absolute Neuts (auto) 6.3 Absolute Lymphs (auto) 1.87 Nucleated RBC % 0 Sodium 137 Potassium 3.7 Chloride 104 Carbon Dioxide 26.0 Anion Gap 7 BUN 30 H Creatinine 1.08 H Estim Creat Clear Calc 35.08 Est GFR (MDRD) Af Amer 61 Est GFR (MDRD) Non-Af 51 L BUN/Creatinine Ratio 27.8 H Glucose 131 H Calcium 9.8 TSH 1.85 Radiography Diagnostic Testing: Clinical Impression(s) from Imaging Studies Brain CT 08/23/23 05:53 IMPRESSION: No acute intracranial abnormality. Chronic ischemic and atrophic changes. 2.7 x 2.6 cm rounded soft tissue mass in the right shift foreman space which is not fully visualized on this exam. Further evaluation with a contrast-enhanced CT of the neck is recommended. Electronically Signed: Krishan Elizalde MD at 7:25 EDT , Chest X-Ray 08/23/23 06:23 IMPRESSION: Cardiomegaly. Left basilar atelectasis. No pulmonary infiltrates or pleural effusions. Electronically Signed: Krishan Elizalde MD at 7:27 EDT , Soft Tissue Neck CT 08/23/23 07:50 IMPRESSION: 1. 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 This is not a right shift foreman space mass as was reported on CT head scan. 2. No CT evidence of lymphadenopathy in the suprahyoid neck and infrahyoid neck. Electronically Signed: Shiva Coy MD at 10:11 EDT , Management Discussion w/another healthcare provider: Specialty Finishing Utility Person (Drs. Dean, Albino) Treatment and Re-Evaluation Narrative: Patient checked out to me. I reviewed the CT soft tissue neck images and the result which I agree with, basically showing a parapharyngeal deep space mass that is irregular. Sounds like the patient just started getting symptoms last night from this. The discomfort in her right lateral neck/face is probably related to this. I discussed with Dr. Dean, patient will follow-up as an outpatient. With regards to her atrial fibrillation, she was given to metoprolol here and she slowed down into the 60-70 range for a little while but then she crept her rate back up into the low 100s. She has been asymptomatic with regards all of this, she does not even have dyspnea with exertion up stairs. Used to see Dr. Feliciano for this, was on metoprolol 50 mg twice daily for blood pressure. Also is on lisinopril/HCTZ low-dose for this. Blood pressures have been 150s/90s or worse here today. Discussed with Dr. Posada who is on-call for the group, he recommends adding low-dose calcium channel jordan such as Cardizem CD120 to her regimen, in addition to Eliquis. Am giving her a dose today before we discharge her home to follow-up with them as well. TRISTA<sub>2</sub>DS<sub>2</sub>-VASc Score for Atrial Fibrillation Stroke Risk from [facility] on 08/23/2023 All calculations should be rechecked by clinician prior to use RESULT SUMMARY: 4 points Stroke risk was 4.8% per year in >90,000 patients (the [place] Atrial Fibrillation Cohort Study) and 6.7% risk of stroke/TIA/systemic embolism. One recommendation suggests a 0 score for men or 1 score for women (no clinical risk factors) is ?low? risk and may not require anticoagulation; a 1 score for men or 2 score for women is ?low-moderate? risk and should consider antiplatelet or anticoagulation; and a score >= for men or >= for women is ?moderate-high? risk and should otherwise be an anticoagulation candidate. INPUTS: Age ?> 2 = >=5 Sex ?> 1 = Female CHF history ?> 0 = No Hypertension history ?> 1 = Yes Stroke/TIA/thromboembolism history ?> 0 = No Vascular disease history (prior [place], peripheral artery disease, or aortic plaque) ?> 0 = No Diabetes history ?> 0 = No Discharge Plan Triage Chief Complaint: Headache ED Provider: Perry Flores Dx/Rx/DC Orders Clinical Impression: Atrial fibrillation with rapid ventricular response, Parapharyngeal space mass Instructions: AFib Dc, ED Tumor, Uncertain Cause Prescriptions: New diltiazem HCl [Cardizem CD] 120 mg capsule,extended release 24hr 120 mg PO DAILY Qty: 30 0RF Eliquis 5 mg tablet 5 mg PO BID Qty: 60 0RF Continued Soothe Hydration 1.25 % drops 1 drp ophthalmic (eye) BID PRN Gold Jimenes Ultimate Eczema Rlf 2 % cream 1 applic topical DAILY PRN (Reason: dry skin) hydrocortisone [Cortizone-10] 1 % cream 1 applic topical BID PRN (Reason: skin irritation) atorvastatin 10 MG tablet 10 mg PO QHS Patient Comments: cholesterol oxybutynin chloride 10 MG tablet extended release 24hr 10 mg PO DAILY Patient Comments: bladder control sgrgdtic-wqi-[place]-lycopen-lutein 1 EACH tablet 1 ea PO DAILY Patient Comments: vitamin supplement lisinopril-hydrochlorothiazide 20-12.5 mg tablet 1 tab PO BID Patient Comments: blood pressure 20/12.5MG potassium chloride 10 mEq tablet extended release 20 meq PO BID Patient Comments: potassium supplement cholecalciferol (vitamin D3) 1,000 UNIT tablet 1,000 unit PO DAILY vit C,O-Fj-tnuno-lutein-zeaxan [id number] uo-gaxi-pt-mg capsule 1 cap PO BID metoprolol tartrate 50 mg tablet 50 mg PO BID Qty: 180 3RF Discontinued aspirin 325 MG tablet 325 mg PO DAILY@0800 Qty: 1 0RF Patient Comments: blood thinner/prevent blood clots Rx Instructions: DO NOT TAKE WITH XARELTO Primary Care Provider: Quita Kern Referrals: Quita Kern MD [Primary Care Provider] - Vlad Valentin MD [Med Staff - Active Staff] - 1-2 Weeks Erick Dean MD [Med Staff - Active Staff] - As soon as possible (call for appt) Disposition Disposition: Home, Self Care Discharge Date/Time: 08/23/23 11:46
[2023-08-23] MEDS: 0.9% Normal Saline (500mL Bag) 500 ML 999 ML IV (06:15)
--- NOTE | 2023-08-23 06:23 | RAD_ITS ---
STUDY: X-RAY CHEST REASON FOR EXAM: Female, 87 years old. Chest pain TECHNIQUE: Frontal view of the chest COMPARISON: None. FINDINGS: There is atelectasis at the left lung base. The lungs are otherwise clear. There are no pleural effusions. There is no pneumothorax. The heart is enlarged. The visualized osseous structures are within normal limits. RAD/Chest 1 View (Portable) IMPRESSION: Cardiomegaly. Left basilar atelectasis. No pulmonary infiltrates or pleural effusions. Electronically Signed: Krishan Elizalde MD at 7:27 EDT ,
[2023-08-23] MEDS: Metoprolol Tartrate 5 MG/5 ML Vial IV ×3 (06:38→07:05)
[2023-08-23 07:39] VITALS: BP 158/93; PULSE 105; RESP 16; O2SAT 98
--- NOTE | 2023-08-23 07:50 | CT_ITS ---
INDICATION: soft tissue mass EXAMINATION: CT NECK WITH CONTRAST - CT Soft Tissue Neck W/ Contrast Injection TECHNIQUE: Helically acquired images were obtained of the neck following IV contrast. A radiation dose optimization technique was used for this scan. IV Contrast dosage and agent: 75 mL of Isovue-370. COMPARISON: CT head without contrast 08/23/2023. FINDINGS: NASOPHARYNX: Unremarkable. SUPRAHYOID NECK: 3.2 x 2.8 x 3.9 cm irregular enhancing solid mass in the right parapharyngeal space. This is causing posterior displacement of the right carotid sheath, lateral displacement of the right medial pterygoid muscle and posterior lateral displacement of the deep lobe of the right parotid gland. This is also causing medial displacement of the right lateral oropharyngeal wall. No other suspicious mass in the suprahyoid neck. INFRAHYOID NECK: Unremarkable larynx, hypopharynx, and supraglottis. THYROID: No focal lesions. SALIVARY GLANDS: Unremarkable. LYMPH NODES: No cervical or supraclavicular lymphadenopathy. VASCULAR STRUCTURES: Posterior displacement of the right carotid sheath by the right parapharyngeal space mass. No significant stenosis or occlusion of the carotid arteries and vertebral arteries. There are calcified plaques in the left common carotid bifurcation extending to the proximal aspect of the left carotid bulb. VISUALIZED PORTIONS OF THE ORBITS, PARANASAL SINUSES, MASTOID AIR CELLS AND SKULL BASE: Unremarkable. BONES: Unremarkable. THORACIC INLET: Clear lung apices. CT/Soft Tissue Neck WITH Contrast IMPRESSION: 1. 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 This is not a right gun repair clerk space mass as was reported on CT head scan. 2. No CT evidence of lymphadenopathy in the suprahyoid neck and infrahyoid neck. Electronically Signed: Shiva Coy MD at 10:11 EDT ,
[2023-08-23 08:17] LABS: Absolute Lymphocyte Count 1.87 X10^3/uL (0.83-4.51); Absolute Neutrophil Count 6.3 X10^3/uL (2.0-7.7); Basophil# 0.07 X10^3/uL; Basophil% 0.8 % (0-1); Eosinophil# 0.28 X10^3/uL; Eosinophils% 3.1 % (0-5); Hematocrit 39.1 % (37-47); Hemoglobin 12.4 g/dL (12.0-15.0); Lymphocyte # 1.87 X10^3/ul (0.83-4.51); Lymphocyte % 20.5 % (19-41); Mean Corp Hgb Conc 31.7 g/dL (32-36); Mean Corpuscular Hgb 27.6 pg (27.0-32.0); Mean Corpuscular Volume 87.1 fL (81-99); Mean Platelet Vol. 11.2 fl (6.2-12.0); Monocyte# 0.57 X10^3/uL; Monocyte% 6.2 % (0-10); NRBC Flagged by Analyzer 0 % (0-5); Neutrophil # 6.32 X10^3/uL (2.7-7.7); Neutrophil % 69.1 % (47-70); Platelet Count 235 K/mm3 (150-450); RBC Distribution Width CV 15.1 % (11.6-14.6); RBC Distribution Width SD 47.8 fl (35.1-43.9); Red Blood Count 4.49 M/mm3 (4.2-5.4); White Blood Count 9.1 K/mm3 (4.4-11.0)
[2023-08-23 08:34] LABS: Anion Gap 7 (5-15); BUN 30 mg/dL (7-18); BUN/Creat Ratio 27.8 RATIO (10-20); Calcium,Total 9.8 mg/dL (8.5-10.1); Chloride 104 mmol/L (98-107); Creatinine, Serum 1.08 mg/dL (0.55-1.02); EST Glomerular Filtration Rate 51 mL/min (>60); Est Glom Filt Rate - Afr Amer 61 mL/min (>60); Estimated Creatinine Clearance 35.08 ml/min; Glucose 131 mg/dL (74-106); Potassium 3.7 mmol/L (3.5-5.1); Sodium Level 137 mmol/L (136-145); Thyroid Stim Hormone (TSH) 1.85 uIU/mL (0.358-3.74)
[2023-08-23 09:00] VITALS: BP 159/101; PULSE 63; RESP 16; O2SAT 98
[2023-08-23 10:45] VITALS: BP 150/95; PULSE 108; RESP 18; O2SAT 98
[2023-08-23 11:31] VITALS: BP 165/106; PULSE 95; RESP 18; TEMP 36.8; O2SAT 93
[2023-08-23] MEDS: dilTIAZem CD 120 MG Capsule PO (11:41)
== END 2023-08-23 11:46 | disposition home or self-care (01) ==
PROVIDERS: Emergency Provider Emergency Medicine; PCP Family Medicine; Visit Provider Emergency Medicine
DX: I48.91 Unspecified atrial fibrillation (principal); R22.1 Localized swelling, mass and lump, neck; Z85.3 Personal history of malignant neoplasm of breast; E78.5 Hyperlipidemia, unspecified; Z79.899 Other long term (current) drug therapy; Z96.653 Presence of artificial knee joint, bilateral; Z90.10 Acquired absence of unspecified breast and nipple; Z90.710 Acquired absence of both cervix and uterus
CPT/HCPCS: 70450; 70491; 71045; 80048; 84443; 85025; 93005; 96361; 96374; 99284; J7040; Q9967; A4216

== ENCOUNTER → 2023-09-17 | Outpatient (CLI) | payer MEDICARE, SELFPAY | END | disposition home or self-care (01) | LOC: PSN 09:13 | PROVIDERS: PCP Family Medicine; Referring Provider Physician Assistant Medical; Visit Provider Physician Assistant Medical | DX: I48.91 Unspecified atrial fibrillation (principal); I34.0 Nonrheumatic mitral (valve) insufficiency; I36.1 Nonrheumatic tricuspid (valve) insufficiency | CPT/HCPCS: 93225; 93226 ==

== ENCOUNTER → 2023-10-15 | Outpatient (CLI) | payer MEDICARE, SELFPAY ==
--- NOTE | 2023-10-15 13:44 | ECHOD_ITS ---
Reason For Study: AFIB Procedure This was a 2D Doppler, Color Flow transthoracic echocardiogram. Exam performed in department. Left Ventricle Normal LV size. Left ventricular systolic function is normal. The left ventricular ejection fraction is 55 %. No regional wall motion abnormalities noted. Right Ventricle Normal RV size. Normal systolic function. Atria The left atrium is moderately enlarged. Normal right atrium. Mitral Valve Bileaflet diffuse mitral valve thickening. Moderate focal mitral valve thickening. Mild (1+) eccentric mitral valve insufficiency. Tricuspid Valve Normal tricuspid valve. Mild to moderate (1-2+) tricuspid valve insufficiency. Pulmonary artery systolic pressure is 50 mmHg. Aortic Valve Trisinus/trileaflet aortic valve. Mild focal aortic valve thickening. Pulmonic Valve Normal pulmonic valve. Trivial pulmonic valve insufficiency. Great Vessels Normal aortic root. Mild pulmonary artery dilation. Inferior vena cava collapse with respiration. Pericardium/Pleural No pericardial effusion. MMode/2D Measurements & Calculations LVIDd: 4.3 cm IVSd: 0.83 cm Ao root diam: 3.4 cm LVIDs: 2.8 cm LVPWd: 1.3 cm RVDd: 3.5 cm FS: 34.9 % LAV(MOD-bp): 88.6 ml LVAd ap4: 22.8 cm2 SV(MOD-sp4): 28.5 ml LAV(MOD-bp) Indexed: 48.2 ml/m2 LVLd ap4: 7.2 cm LAV(MOD-sp2): 74.8 ml EDV(MOD-sp4): 61.3 ml LAV(MOD-sp4): 86.3 ml EDV(sp4-el): 61.5 ml LVAs ap4: 15.5 cm2 LVLs ap4: 6.3 cm ESV(MOD-sp4): 32.8 ml ESV(sp4-el): 32.4 ml EF(MOD-sp4): 46.5 % EF(sp4-el): 47.3 % SV(sp4-el): 29.1 ml LA A4 area: 28.0 cm2 LA dimension(2D): 3.4 cm RA A4 area: 20.7 cm2 Doppler Measurements & Calculations MV E max delano: 99.1 cm/sec Ao V2 max: 84.5 cm/sec LV V1 max: 76.6 cm/sec Ao max P.9 mmHg LV V1 max P.3 mmHg Ao V2 mean: 63.5 cm/sec LV V1 mean P.4 mmHg Ao mean P.8 mmHg LV V1 mean: 55.3 cm/sec Ao V2 VTI: 20.1 cm LV V1 VTI: 16.4 cm AV (velocity ratio): 0.82 PA V2 max: 98.8 cm/sec PI end-d delano: 132.3 cm/sec TR max delano: 335.6 cm/sec PA V2 mean: 68.4 cm/sec TR max P.1 mmHg ECHO/Echo Complete Interpretation Summary Normal LV size. Left ventricular systolic function is normal. The left ventricular ejection fraction is 55 %. Moderate focal mitral valve thickening. Mild (1+) eccentric mitral valve insufficiency. The left atrium is moderately enlarged. Ordering Physician: Tayler Pepe Referring Physician: Tayler Pepe Performed By: Savannah Fermin RCS
== END | disposition home or self-care (01) ==
PROVIDERS: PCP Family Medicine; Referring Provider Physician Assistant Medical; Visit Provider Physician Assistant Medical
DX: I36.1 Nonrheumatic tricuspid (valve) insufficiency (principal); I48.91 Unspecified atrial fibrillation; I34.0 Nonrheumatic mitral (valve) insufficiency
CPT/HCPCS: 93306

== ENCOUNTER → 2024-01-01 | Outpatient (CLI) | payer MEDICARE, SELFPAY ==
[2024-01-01 18:30] LABS: Anion Gap 10 (5-15); BUN 78 mg/dL (7-18); BUN/Creat Ratio 27.8 RATIO (10-20); Calcium,Total 11.1 mg/dL (8.5-10.1); Chloride 109 mmol/L (98-107); Creatinine, Serum 2.81 mg/dL (0.55-1.02); EST Glomerular Filtration Rate 17 mL/min (>60); Est Glom Filt Rate - Afr Amer 20 mL/min (>60); Glucose 113 mg/dL (74-106); Potassium 5.9 mmol/L (3.5-5.1); Sodium Level 135 mmol/L (136-145)
== END | disposition home or self-care (01) ==
LOC: MFPLAB 13:58
PROVIDERS: PCP Family Medicine; Visit Provider Family Medicine
DX: I10 Essential (primary) hypertension (principal)
CPT/HCPCS: 36415; 80048

== ENCOUNTER → 2024-01-15 | Outpatient (CLI) | payer MEDICARE, SELFPAY ==
[2024-01-15 18:02] LABS: Absolute Lymphocyte Count 1.83 X10^3/uL (0.83-4.51); Absolute Neutrophil Count 8.9 X10^3/uL (2.0-7.7); Basophil# 0.08 X10^3/uL; Basophil% 0.7 % (0-1); Eosinophil# 0.21 X10^3/uL; Eosinophils% 1.8 % (0-5); Hematocrit 34.8 % (37-47); Hemoglobin 10.9 g/dL (12.0-15.0); Lymphocyte # 1.83 X10^3/ul (0.83-4.51); Lymphocyte % 15.4 % (19-41); Mean Corp Hgb Conc 31.3 g/dL (32-36); Mean Corpuscular Hgb 29.2 pg (27.0-32.0); Mean Corpuscular Volume 93.3 fL (81-99); Mean Platelet Vol. 11.4 fl (6.2-12.0); Monocyte# 0.81 X10^3/uL; Monocyte% 6.8 % (0-10); NRBC Flagged by Analyzer 0 % (0-5); Neutrophil # 8.88 X10^3/uL (2.7-7.7); Platelet Count 218 K/mm3 (150-450); RBC Distribution Width CV 15.6 % (11.6-14.6); RBC Distribution Width SD 53.5 fl (35.1-43.9); Red Blood Count 3.73 M/mm3 (4.2-5.4); White Blood Count 11.9 K/mm3 (4.4-11.0)
[2024-01-15 18:40] LABS: Anion Gap 8 (5-15); BUN 18 mg/dL (7-18); Calcium,Total 10.3 mg/dL (8.5-10.1); Chloride 107 mmol/L (98-107); Creatinine, Serum 1.06 mg/dL (0.55-1.02); EST Glomerular Filtration Rate 52 mL/min (>60); Est Glom Filt Rate - Afr Amer 63 mL/min (>60); Glucose 94 mg/dL (74-106); Potassium 4.3 mmol/L (3.5-5.1); Sodium Level 137 mmol/L (136-145)
== END | disposition home or self-care (01) ==
LOC: MFPLAB 14:20
PROVIDERS: PCP Family Medicine; Visit Provider Family Medicine
DX: E86.0 Dehydration (principal); D63.8 Anemia in other chronic diseases classified elsewhere; R19.7 Diarrhea, unspecified
CPT/HCPCS: 36415; 80048; 85025

== ENCOUNTER → 2024-01-21 | Outpatient (CLI) | payer MEDICARE, SELFPAY | END | disposition home or self-care (01) | LOC: MFPLAB 13:43 | PROVIDERS: PCP Family Medicine; Visit Provider Family Medicine | DX: N39.0 Urinary tract infection, site not specified (principal) | CPT/HCPCS: 87086; 87088 ==

== ENCOUNTER → 2024-04-15 | Outpatient (CLI) | payer MEDICARE, SELFPAY ==
--- NOTE | 2024-04-15 13:52 | BI_ITS ---
MAMMOGRAPHY - UNILATERAL SCREENING: RIGHT BREAST REASON FOR EXAM: Female, 88 years old. Routine annual screening examination (unilateral). PERTINENT HISTORY: Personal history of breast cancer. Prior left mastectomy. Sister with breast cancer. Grandmother with breast cancer. TECHNIQUE: Digital unilateral breast huan (3D mammographic acquisition) in the CC and MLO projections. 2-D mediolateral oblique (MLO) and craniocaudad (CC) views of both breasts were obtained. CAD: Full Field Digital Mammography with Computer Added Detection was performed. COMPARISON: Comparison is made with prior study dated April 09, 2023 and April 04, 2022. FINDINGS: Breast Composition: There are scattered areas of fibroglandular density. There are no dominant masses or suspicious calcifications. No other significant abnormalities are identified. There has been no significant change since the prior study. BI/SCREEN MAMM (CAD) W/HUAN UNI R IMPRESSION: Stable unilateral screening mammogram. Yearly follow-up mammogram recommended. (A) ASSESSMENT CATEGORY: BIRADS Category 1: Negative. A letter regarding these results will be sent to the patient by the facility within 30 days. Approximately 10% of breast cancers are not detected by mammography. A normal mammogram should not delay biopsy of a clinically suspicious abnormality. [id number] Electronically Signed: Brandon Mayberry MD at 14:48 EST ,
[2024-04-15 17:53] LABS: Absolute Lymphocyte Count 1.43 X10^3/uL (0.83-4.51); Absolute Neutrophil Count 5.8 X10^3/uL (2.0-7.7); Basophil# 0.12 X10^3/uL; Basophil% 1.4 % (0-1); Eosinophil# 0.32 X10^3/uL; Eosinophils% 3.8 % (0-5); Hematocrit 38.6 % (37-47); Hemoglobin 11.7 g/dL (12.0-15.0); Lymphocyte # 1.43 X10^3/ul (0.83-4.51); Lymphocyte % 17.1 % (19-41); Mean Corp Hgb Conc 30.3 g/dL (32-36); Mean Corpuscular Hgb 26.7 pg (27.0-32.0); Mean Corpuscular Volume 88.1 fL (81-99); Mean Platelet Vol. 10.5 fl (6.2-12.0); Monocyte# 0.63 X10^3/uL; Monocyte% 7.5 % (0-10); NRBC Flagged by Analyzer 0 % (0-5); Neutrophil # 5.82 X10^3/uL (2.7-7.7); Neutrophil % 69.8 % (47-70); Platelet Count 277 K/mm3 (150-450); RBC Distribution Width CV 15.1 % (11.6-14.6); RBC Distribution Width SD 48.7 fl (35.1-43.9); Red Blood Count 4.38 M/mm3 (4.2-5.4); White Blood Count 8.4 K/mm3 (4.4-11.0)
[2024-04-15 18:11] LABS: Anion Gap 5 (5-15); BUN 14 mg/dL (7-18); BUN/Creat Ratio 12.7 RATIO (10-20); Calcium,Total 9.8 mg/dL (8.5-10.1); Chloride 102 mmol/L (98-107); EST Glomerular Filtration Rate 50 mL/min (>60); Est Glom Filt Rate - Afr Amer 60 mL/min (>60); Glucose 105 mg/dL (74-106); Potassium 3.5 mmol/L (3.5-5.1); Sodium Level 139 mmol/L (136-145)
[2024-04-18 17:34] LABS: BNP,B-Type NATRIURETIC PEPTIDE 564.4 pg/mL (0-100)
== END | disposition home or self-care (01) ==
PROVIDERS: PCP Family Medicine; Referring Provider Internal Medicine Hematology & Oncology; Visit Provider Internal Medicine Hematology & Oncology
DX: Z12.31 Encounter for screening mammogram for malignant neoplasm of breast (principal); Z85.3 Personal history of malignant neoplasm of breast; Z90.12 Acquired absence of left breast and nipple; Z80.3 Family history of malignant neoplasm of breast; R60.0 Localized edema; I10 Essential (primary) hypertension; D63.8 Anemia in other chronic diseases classified elsewhere; E86.0 Dehydration
CPT/HCPCS: 36415; 77063; 77067; 80048; 83880; 84443; 85025

== ENCOUNTER → 2024-04-21 | Outpatient (CLI) | payer MEDICARE, SELFPAY ==
--- NOTE | 2024-04-21 10:10 | US_ITS ---
STUDY: ABDOMINAL ULTRASOUND REASON FOR EXAM: Female, 88 years old. EPIGASTRIC SWELLING, MASS OR LUMP TECHNIQUE: Transabdominal ultrasound was performed with real-time and static cuevas scale imaging. TECHNICAL QUALITY: Adequate. COMPARISON: None. FINDINGS: Small amount of perihepatic and perisplenic fluid. Liver: The liver measures 14.7 cm. There is increased echogenicity consistent with fatty infiltration. The bile ducts are within normal limits. There is hepatic color flow. The direction of portal flow is hepatopetal. There is no demonstrated mass lesion. Gallbladder: Normal distended gallbladder. The gallbladder wall measures 1.9 mm. There is a negative sonographic Veras''s sign. There is no pericholecystic fluid. There is a solitary echogenic gallstone within the gallbladder. This measures 8 mm x 7 mm x 5 mm. Common Bile Duct (C.B.D.): The common bile duct measures 3.4 mm. Pancreas: Normal size of the head, body and tail of the pancreas. There is normal echogenicity of the pancreas. There is no demonstrated pancreatic mass or cyst. Spleen: Normal size of the spleen. The spleen measures 9.6 cm x 3.5 cm x 4.3 cm. The spleen is heterogeneous echotexture with the multiple tiny echogenic foci suggestive splenic granulomas. Right Kidney: Normal size of the right kidney. The right kidney measures 10.8 cm x 4.4 cm x 4.7 cm. Normal renal cortex. The right cortex measures 1.2 cm. There is no demonstrated renal mass or cyst. There is no right hydronephrosis. Left Kidney: There is atrophy of the left kidney. The left kidney measures 8.8 cm x 3.9 sign by 4.1 cm. There is thinning of the renal cortex. The left cortex measures 0.5 cm. There is no demonstrated renal mass or cyst. There is no left hydronephrosis. Aorta: Unremarkable I.V.C.: The IVC is patent. There is no ascites. US/Abdomen Complete IMPRESSION: Small amount of perisplenic and perihepatic fluid. Solitary gallstone. Findings suggestive of calcified splenic granulomas. Left renal atrophy. Electronically Signed: Brandon Mayberry MD at 11:37 EST ,
== END | disposition home or self-care (01) ==
LOC: US 10:09
PROVIDERS: PCP Family Medicine; Referring Provider Family Medicine; Visit Provider Family Medicine
DX: R10.84 Generalized abdominal pain (principal)
CPT/HCPCS: 76700